=== PATIENT | female | born 1990 | race Caucasian/White ===

== ENCOUNTER 2016-06-03 05:49 | Day surgery (SDC) | payer BC, OTHER ==
[~2016-06-03] VITALS: Ht 165.1 cm; Wt 92.5 kg
[2016-06-03] MEDS ORDERED: MIDAZOLAM HCL 5 MG/5 ML VIAL IVP ONE (07:15)
[2016-06-03] MEDS ORDERED: OXYMETAZOLINE HCL 0.05% NASAL SPRAY NS ONE (07:15)
[2016-06-03] MEDS ORDERED: CEFAZOLIN 1 GM IVPB PREMIX 50 ML IV ONE (07:15)
[2016-06-03] MEDS ORDERED: NS 100 ML BAG IV ONE (07:15)
[2016-06-03] MEDS ORDERED: SEVOFLURANE 15 MIN GAS INH ONE (07:15)
[2016-06-03] MEDS ORDERED: LIDOCAINE/EPI 1% 1:100000 20 ML VIAL INJ ONE (07:15)
[2016-06-03] MEDS ORDERED: GLYCOPYRROLATE 0.2 MG/ML VIAL IJ ONE (07:15)
[2016-06-03] MEDS ORDERED: DEXAMETHASONE SOD PHOSPHATE 4 MG/ML VIAL IVP ONE (07:15)
[2016-06-03] MEDS ORDERED: fentaNYL CITRATE 250 MCG/5 ML AMP IV ONE (07:15)
[2016-06-03] MEDS ORDERED: NEOSTIGMINE METHYLSULFATE 1 MG/ML, 10 ML VIAL IVP ONE (07:15)
[2016-06-03] MEDS ORDERED: TRIAMCINOLONE ACETONIDE 40 MG/ML IM ONE (07:15)
[2016-06-03] MEDS ORDERED: ONDANSETRON HCL 4 MG/2 ML VIAL IVP ONE (07:15)
[2016-06-03] MEDS ORDERED: ROCURONIUM BROMIDE 10 MG/ML (ZEMURON) IV ONE (07:15)
[2016-06-03] MEDS ORDERED: PROPOFOL 200MG/ 20ML VIAL (DIPRIVAN) IV ONE (07:15)
[2016-06-03] MEDS ORDERED: LR 1,000 ML IV SCH (08:27)
[2016-06-03] MEDS ORDERED: METOCLOPRAMIDE HCL 10 MG/2 ML VIAL IVP PRN (08:30)
[2016-06-03] MEDS ORDERED: MORPHINE 2 MG/ML INJ. SYRINGE IVP PRN ×3 (08:30)
[2016-06-03] MEDS ORDERED: HYDROcodone/ACETAMIN 5-325 MG TAB (NORCO/ VICODIN) PO PRN (08:45)
[2016-06-03 10:51] VITALS: BP_SYST 113
== END 2016-06-03 10:40 | disposition home or self-care (01) ==
LOC: SDS 05:49 → SMU 05:51 → SDS 10:40
PROVIDERS: ATTEND Otolaryngology Plastic Surgery within the Head & Neck
DX: J32.9 Chronic sinusitis, unspecified (principal); J33.9 Nasal polyp, unspecified; J39.2 Other diseases of pharynx
CPT/HCPCS: 31255; 31267; 42808; 88305; J0690; J1100; J2250; J2405; J2704; J2710; J3010; J3301; J3490; J7120